=== PATIENT | female | born 1960 | race Caucasian/White ===

== ENCOUNTER → 2017-11-04 | Outpatient (CLI) | payer OTHER | LOC: BRMIMAGING 14:44 | PROVIDERS: ATTEND Family Medicine | DX: M79.672 Pain in left foot (principal) | CPT/HCPCS: 73610-PO; 73630-PO ==

== ENCOUNTER → 2018-01-14 | Outpatient (CLI) | payer OTHER | LOC: BRMIMAGING 10:07 | PROVIDERS: ATTEND Hospitalist | DX: R94.31 Abnormal electrocardiogram [ECG] [EKG] (principal) | CPT/HCPCS: 71046-PO ==